=== PATIENT | male | born 1980 | race Caucasian/White ===

== ENCOUNTER 2019-06-13 20:08 | Emergency (ER) | payer OTHER ==
[2019-06-13 20:17] VITALS: BP 145/89
[2019-06-13] MEDS ORDERED: IBUPROFEN 600 MG TABLET PO STA (20:29)
--- NOTE | 2019-06-13 20:29 | ED Physician Documentation ---
History of Present Illness - Stated complaint Stated Complaint: RT KNEE INJURY - Chief complaint Chief Complaint: Trauma Ext - Additonal information Additional information: This is a 38-year-old male who presents with right knee pain after skiing injury. Patient was skiing at [employer] past today and he states that his ski caught on snow and collapsed under him and his leg twisted. He had immediate pain and burning which likely was within the knee joint. He was unable to bear weight initially, he subsequently was able to bear some weight walking to the car but with great difficulty and he felt like it was going to give out on him. He denies any weakness or numbness distal to the knee. He did feel a pop when he initially went down. He denies any trauma to his head or other parts of his body Review of Systems Skin: denies: Laceration (s) Musculoskeletal: reports: Joint pain PD PAST MEDICAL HISTORY - Present Medications Home Medications: Ambulatory Orders Medication Instructions Recorded Confirmed No Known Home Medications 06/13/19 06/13/19 - Allergies Allergies/Adverse Reactions: Allergies Allergy/AdvReac Type Severity Reaction Status Date / Time No Known Drug Allergies Allergy Verified 06/13/19 20:16 PD ED PE NORMAL - Vitals Vital signs reviewed: Yes - General General: Alert and oriented X 3, No acute distress - HEENT HEENT: Atraumatic - Cardiac Cardiac: Other (Well-perfused extremities, brisk capillary refill in lower extremities) - Respiratory Respiratory: Clear bilaterally - Extremities Extremities: Other (Right knee there is slight edema around the joint line. There is mild tenderness palpation in the joint line. The quadriceps and patellar tendon and patella are nontender. The distal femur and proximal fibular and tibial are also nontender. There is no tenderness over the MCL, very slight tenderness over the LCL. Posterior drawer test is stable, anterior drawer test reveals laxity on the right compared to the left. Patient is able to flex to about 90 degrees with some discomfort and extend his leg to 180 degrees. Distal strength is 5 out of 5 with ankle dorsiflexion and plantarflexion bilaterally. Sensation is intact light touch over the bilateral lower extremities, capillary refill is brisk.) - Neuro Neuro: Alert and oriented X 3 - Psych Psych: Normal mood, Normal affect Results - Vitals Vitals: Vital Signs - 24 hr 06/13/19 20:13 Temperature 37.6 C H Heart Rate 81 Respiratory 18 Rate Blood Pressure 145/89 H O2 Saturation 100 Oxygen O2 Source Room air - Rads (name of study) Knee XR Radiology: Other (No acute osseous abnormality) PD MEDICAL DECISION MAKING - ED course Complexity details: considered differential (Fracture, ligamentous injury, strain, sprain.) ED course: Patient presents with a twisting injury while skiing, he has some laxity with testing of his ACL. X-rays obtained and shows no acute osseous abnormality. I discussed with him my concerns, and that he needs PCP follow-up and it unless he has complete resolution of his symptoms he likely will need further imaging such as MRI to assess for ligamentous injury, particularly his ACL. He was placed into a locking knee brace, and he provided with crutches. I gave him ibuprofen, and reviewed pain control, rest, ice, elevation. He will follow-up with his primary care provider this week. I reviewed return precautions he was discharg ed home in the care of his Departure - Departure Disposition: 01 Home, Self Care Clinical Impression: Knee injury Qualifiers: Encounter type: initial encounter Laterality: right Qualified Code(s): S89.91XA - Unspecified injury of right lower leg, initial encounter Condition: Good Comments: You were seen today for knee injury. I am concerned that you may have damaged a ligament if any such as your ACL. Please wear the knee brace whenever you are out of bed or using your leg. Use the crutches until you are able to walk pain- free, or until directed by a provider at a follow up appointment. Please follow-up with your primary care provider in the next week, unless your symptoms resolve I think you likely will need an MRI of your knee to assess for damage to the ligaments. If you are having severe pain or other concerning symptoms return to the emergency department. You may take Tylenol 650 mg and ibuprofen 600 mg every 6 hours as needed for pain.
--- NOTE | 2019-06-13 21:00 | XRAY Report ---
Reason: R knee pain after twist skiing Procedure Date: 06/13/2019 Accession Number: [id number] / [id number] Procedure: XR - Knee 3 View RT CPT Code: Final Report FULL RESULT: EXAM: RIGHT KNEE RADIOGRAPHY EXAM DATE: 06/13/2019 08:46 PM. CLINICAL HISTORY: R knee pain after twist skiing. COMPARISON: None. TECHNIQUE: 3 views. FINDINGS: Bones: Normal. No fractures or bone lesions. Joints: Normal. No effusion. No subluxations. Soft Tissues: Normal. No soft tissue swelling. IMPRESSION: Normal knee radiography. RADIA
== END 2019-06-13 21:36 | disposition home or self-care (01) ==
LOC: ED 20:08
DX: S89.91XA Unspecified injury of right lower leg, initial encounter (principal); X50.1XXA Overexertion from prolonged static or awkward postures, initial encounter; Y93.23 Activity, snow (alpine) (downhill) skiing, snowboarding, sledding, tobogganing and snow tubing; Y92.89 Other specified places as the place of occurrence of the external cause
CPT/HCPCS: 73562; 99283; 99284; A9270

== ENCOUNTER 2019-07-22 12:46 | Outpatient (CLI) | payer OTHER ==
--- NOTE | 2019-07-23 08:09 | MRI Report ---
Reason: PAIN IN RT KNEE Procedure Date: 07/22/2019 Accession Number: [id number] / [id number] Procedure: MRI - Knee RT W/O CPT Code: Final Report FULL RESULT: EXAM: RIGHT KNEE MRI WITHOUT CONTRAST EXAM DATE: 07/22/2019 01:49 PM. CLINICAL HISTORY: Knee pain after skiing injury 5-1/2 months ago. COMPARISON: KNEE 3 VIEW RT 06/13/2019 8:24 PM. TECHNIQUE: Multiplanar, multisequence T1-weighted and fluid-sensitive sequences of the knee without contrast. Other: None. FINDINGS: Ligaments: The anterior cruciate ligament is abnormal. It is slightly lax and the coronal images demonstrate at least partial discontinuity of the mid substance of the ligament. Furthermore, there is a pivot shift contusion with mild impaction of the posterior aspect of the lateral tibial plateau and a further small contusion of the posterior aspect of the medial tibial plateau. Contusions in these locations are highly correlated with ACL tear. Findings are consistent with at least a high-grade partial ACL tear and complete tear is considered reasonably likely. The posterior cruciate ligament is normal. The medial and lateral collateral ligaments are normal. Patellofemoral compartment: Minimal partial thickness central femoral trochlear chondromalacia with minimal subjacent degenerative marrow signal changes. Retropatellar cartilage is normal. No patellofemoral osteoarthritis. Patellofemoral alignment is anatomic. The distal quadriceps and patellar tendons are normal. The medial and lateral patellofemoral retinacular are normal. Medial compartment: The medial meniscus is normal. Medial compartment cartilage is normal. No medial compartment osteoarthritis. Lateral compartment: Radially oriented tear through the posterior horn of the lateral meniscus slightly lateral to the posterior horn root. Very questionable small tear along the superior articular surface of the free edge of the midportion of the peripheral body of the lateral meniscus. The anterior horn is intact. Lateral compartment cartilage is normal. No lateral compartment osteoarthritis. Soft tissues: There is a small knee effusion and a very small popliteal cyst small fluid collection superficial to the medial margin of the medial head of the gastrocnemius most likely reflect superior extension of the popliteal cyst. Osseous structures: As noted above there is contusion and impaction of the posterior aspect of the lateral tibial plateau and a tiny contusion of the posterior aspect of the medial tibial plateau consistent with pivot shift injury. Additionally, there is subtle marrow edema in the fibular head including the styloid. Fibular marrow edema in the setting of ACL injury raises the question of posterolateral corner injury, though no gross disruption of the posterior lateral corner ligaments is visible. IMPRESSION: 1. ACL injury is at least a high-grade partial thickness tear and the presence of pivot shift injury to the medial and lateral tibial plateaus makes it likely this is a complete tear. 2. Radially oriented tear through the posterior horn of the lateral meniscus slightly lateral to the posterior horn root. The lateral compartment is otherwise normal. 3. Minimal partial thickness central femoral trochlear chondromalacia. The patellofemoral compartment is otherwise normal. 4. Normal medial compartment. 5. Mild marrow edema in the fibular head. Fibular head edema in the setting of ACL injury raises the question of posterolateral corner injury. RADIA
== END 2019-07-22 12:47 | disposition home or self-care (01) ==
LOC: DI 12:46
PROVIDERS: ATTEND Physician Assistant
DX: S83.511A Sprain of anterior cruciate ligament of right knee, initial encounter (principal); S83.281A Other tear of lateral meniscus, current injury, right knee, initial encounter; M94.261 Chondromalacia, right knee; R60.0 Localized edema

== ENCOUNTER 2019-10-19 07:23 | Day surgery (SDC) | payer OTHER ==
[2019-10-19] MEDS ORDERED: MIDAZOLAM 2 MG/2 ML VIAL IVP ONE (07:24)
[2019-10-19] MEDS ORDERED: PROPOFOL 200 MG/20 ML VIAL IVP ONE (07:24)
[2019-10-19] MEDS ORDERED: ONDANSETRON 4 MG/2 ML VIAL IVP ONE (07:24)
[2019-10-19] MEDS ORDERED: fentaNYL 100 MCG/2 ML VIAL IVP ONE (07:24)
[2019-10-19] MEDS ORDERED: KETOROLAC 30 MG/ML VIAL IVP ONE (07:24)
[2019-10-19] MEDS ORDERED: EPINEPHrine 1 MG/ML AMP ONE (07:25)
[2019-10-19] MEDS ORDERED: BUPIVACAINE 0.25% PF 10 ML VIAL ONE (07:25)
[2019-10-19] MEDS ORDERED: LACTATED RINGERS 1,000 ML IV ONE ×2 (07:29→10:51)
[2019-10-19] MEDS ORDERED: CEFAZOLIN SODIUM IN 0.9 % NACL 2 GM/100 ML BAG IV ONE (07:47)
--- NOTE | 2019-10-19 08:14 | ANESTHESIA ---
Pre-Anesthesia VS, & Labs - Diagnosis right knee acl tear - Procedure right knee acl repair Vital Signs: Temp Pulse Resp BP Pulse Ox 36.3 C L 74 12 142/101 H 74 L 10/19/19 07:34 10/19/19 07:34 10/19/19 07:34 10/19/19 07:34 10/19/19 07:34 Height 5 ft 10 in Weight (kg) 99.79 kg Body Mass Index 30.8 Home Medications and Allergies Home Medications: Ambulatory Orders Cetirizine [ZyrTEC] 10 mg PO DAILY 10/14/19 Cetirizine [ZyrTEC] 10 mg PO DAILY 10/14/19 Allergies/Adverse Reactions: Allergies Allergy/AdvReac Type Severity Reaction Status Date / Time No Known Drug Allergies Allergy Verified 10/14/19 12:15 Anes History & Medical History - Anesthetic History Anesthesia Complications: reports: No previous complications Family history of Anesthesia Complications: Denies Family history of Malignant Hyperthermia: Denies - Medical History Cardiovascular: reports: None Pulmonary: reports: None Gastrointestinal: reports: None Urinary: reports: None Neuro: reports: None Musculoskeletal: reports: None, Other Endocrine/Autoimmune: reports: None Blood Disorders: reports: None Skin: reports: None Smoking Status: Never smoker Psychosocial: reports: No issues indicated Exam General: Alert, Oriented x3, Cooperative, No acute distress Dental: WNL Mouth Openin Fingerbreadth Neck Mobility: Normal Mallampati classification: I Thyromental Distance: 4-6 cm Respiratory: Lungs clear, Normal breath sounds, No respiratory distress, No accessory muscle use Cardiovascular: Regular rate, Normal S1, Normal S2, No murmurs Abdomen: Normal bowel sounds, Soft, No tenderness, No hepatospenomegaly, No masses Extremities: No clubbing, No cyanosis, No edema, Normal pulses, No tenderness/swelling Neurological: Normal gait, Normal speech, Strength at 5/5 X4 ext, Normal tone, Sensation intact, Cranial nerves 3-12 NL, Reflexes 2+ Mental/Cognitive Status: Alert/Oriented X3, Normal for patient Cognitive Status: Within normal limits Plan Anesthesia Type: General, Femoral Block Regional Block: Per Surgeon's request for Post Op pain control Consent for Procedure(s) Verified and Reviewed: Yes Code Status: Attempt Resuscitation ASA classification: 2-Mild systemic disease Is this case an emergency?: No
[2019-10-19] MEDS ORDERED: BUPIVACAINE 0.25% PF 30 ML VIAL SUBQ ONE (09:30)
[2019-10-19] MEDS ORDERED: ONDANSETRON 4 MG/2 ML VIAL IVP PRN (10:38)
[2019-10-19] MEDS ORDERED: oxyCODONE 5 MG TABLET PO PRN (10:38)
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
[2019-10-19] MEDS: fentaNYL 100 MCG/2 ML VIAL ONE ×2 (10:49→10:55)
[2019-10-19] MEDS: HYDROmorphone 1 MG/ML CARPUJECT ONE ×2 (11:00→11:05)
[2019-10-19] MEDS ORDERED: oxyCODONE 5 MG TABLET ONE (11:19)
[2019-10-19 11:48] VITALS: BP 142/96
== END 2019-10-19 07:24 | disposition home or self-care (01) ==
LOC: SDS 07:23
PROVIDERS: ATTEND Orthopaedic Surgery
DX: S83.511A Sprain of anterior cruciate ligament of right knee, initial encounter (principal); S83.281A Other tear of lateral meniscus, current injury, right knee, initial encounter; S83.241A Other tear of medial meniscus, current injury, right knee, initial encounter; M71.21 Synovial cyst of popliteal space [Baker], right knee; Z87.891 Personal history of nicotine dependence

== ENCOUNTER 2023-11-19 08:03 | Emergency (ER) | payer OTHER ==
--- NOTE | 2023-11-19 08:06 | ED Physician Documentation ---
PD HPI LOWER EXT INJURY - Stated complaint Stated Complaint: RT TOE INJ - History obtained from History obtained from: Patient - History of Present Illness PD HPI LOW EXT INJURY LOCATION: Right, Toe Type of injury: Blunt / blow (he stubbed toe 2 days ago and it was bent to side with injury. pulled it straight. Has persisting paina nd swelling.) Timing - onset: How many days ago (2) Timing - duration: Days (2) Timing - details: Abrupt onset, Still present Review of Systems Skin: denies: Abrasion (s), Laceration (s) Neurologic: denies: Focal weakness, Numbness PD PAST MEDICAL HISTORY - Past Medical History Cardiovascular: None Respiratory: None Neuro: None Endocrine/Autoimmune: None GI: None : None HEENT: None Psych: None Musculoskeletal: None, Other Derm: None - Present Medications Home Medications: Ambulatory Orders Medication Instructions Recorded Confirmed Cetirizine [ZyrTEC] 10 mg PO DAILY 10/14/19 11/19/23 lisinopriL [Zestril] 5 mg PO DAILY 11/19/23 11/19/23 - Allergies Allergies/Adverse Reactions: Allergies Allergy/AdvReac Type Severity Reaction Status Date / Time No Known Drug Allergies Allergy Verified 11/19/23 08:07 - Social History Smoking Status: Never smoker PD ED PE NORMAL - Vitals Vital signs reviewed: Yes - Extremities Extremities: Other (right little toe with swelling and ecchumosis at dip area. Tender to touch and movement. He can attempt fle/extension and has good color and cap refill. ) - Neuro Neuro: No motor deficit, No sensory deficit Results - Vitals Vitals: Vital Signs - 24 hr 11/19/23 08:07 Temperature 36 C L Heart Rate 62 Respiratory 16 Rate Blood Pressure 144/87 H O2 Saturation 100 Oxygen O2 Source Room air - Rads (name of study) right litle toe Relevant Findings:: Prelim report reviewed, EMP independent interpretation of test (subluxed but not dislocated. ) PD Medical Decision Making - ED course Complexity details: reviewed results (subluxation of the toe at DIP. Not dislocated. QUestion of hairline fx distal phalanx. ), considered differential (he dislocated toe at DIP and pulled it back into alignemnet. Has swelling, bruising and still hurting a lot. Concerned about fracture.), d/w patient Reviewed Lab Results: the distal bone is subluxed, so the collateral ligament on medial side is not supporting. Might be hiarline fracture as well but nondisplaced. He needs daniel tape and support for it while healing, about 4 weeks. He says it feels better with his boot on. I did demonstrate types of daniel taping for him. Departure - Departure Disposition: 01 Home, Self Care Clinical Impression: Subluxation of right toe Condition: Stable Record reviewed to determine appropriate education?: Yes Instructions: ED Sprain Toe Follow-Up: MARITZA BRENNER NP [Primary Care Provider] - Comments: The distal joint of the toe still looks partly subluxed but not dislocated. What this means is the ligaments holding the toe in place however torn and its just sitting slightly out of the normal position. Mainly this needs to be held closer in position over several weeks to allow the ligaments to heal back in place. You can remove the tape briefly for change in it and showers etc. but have it taped much of the time. The radiology reading which I just got suggest there may be a small hairline crack in the and bone. I think it looks more arthritic with the spur to me. However the treatment would be the same for it in a similar duration of healing. It does not involve the joint so future function should be okay. Healing the ligament is actually more savage to the function of the joint. Elevate rest. Activity as tolerated. Right now there is fair amount of swelling in the area which is probably causing much of the pain. That should go down with less activity, ice and elevation but mostly several more days of time. Follow-up with your primary if not improving well over the next week and resolved by 2 or 3 weeks. Forms: PCP List Discharge Date/Time: 11/19/23 09:35
[2023-11-19 08:18] VITALS: BP 144/87; O2SAT 100
--- NOTE | 2023-11-19 08:57 | XRAY Report ---
PROCEDURE: Toe(s) 2+V RT INDICATIONS: jammed little toe couple days ago TECHNIQUE: 3 views of the fifth toe(s) acquired. COMPARISON: None. FINDINGS: Bones: On lateral view, possible nondisplaced fracture is seen at the dorsal cortex. There is also la teral subluxation of the interphalangeal joint. Soft tissues: No suspicious calcifications. IMPRESSION: Lateral subluxation of the fifth interphalangeal joint. Possible nondisplaced fracture lucency is see n at the dorsal cortex on lateral view of the distal phalanx. Reviewed by: Aman Hargrove MD on 11/19/2023 8:55 AM PDT Approved by: Aman Hargrove MD on 11/19/2023 8:55 AM PDT Station ID: [id number]
== END 2023-11-19 09:35 | disposition home or self-care (01) ==
LOC: ED 08:03
DX: S93.134A Subluxation of interphalangeal joint of right lesser toe(s), initial encounter (principal); W22.8XXA Striking against or struck by other objects, initial encounter
CPT/HCPCS: 99283